=== PATIENT | female | born 1975 | race Caucasian/White ===

== ENCOUNTER 2018-03-30 05:55 | Emergency (ER) | payer OTHER, SELFPAY ==
[2018-03-30 05:56] VITALS: BP 139/88; PULSE 99; RESP 16; TEMP 36.7; O2SAT 100; BMI 34.2
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
[2018-03-30 06:07] VITALS: RESP 16
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
[2018-03-30] MEDS: Ibuprofen 600 MG Tablet PO (06:57)
== END 2018-03-30 07:23 | disposition home or self-care (01) ==
PROVIDERS: Emergency Provider Emergency Medicine; Family Provider Physician Assistant; PCP Physician Assistant
DX: S02.2XXA Fracture of nasal bones, initial encounter for closed fracture (principal); S80.11XA Contusion of right lower leg, initial encounter; S10.91XA Abrasion of unspecified part of neck, initial encounter; Y04.2XXA Assault by strike against or bumped into by another person, initial encounter; Y93.9 Activity, unspecified; Y92.9 Unspecified place or not applicable; Y99.9 Unspecified external cause status; Z72.0 Tobacco use
CPT/HCPCS: 70486; 73590; 99283

== ENCOUNTER → 2018-04-05 10:54 | Outpatient (CLI) | payer OTHER, SELFPAY ==
[2018-04-05 12:36] LABS: Hemoglobin 15.5 g/dl (12.0-15.0); Mean Corp Hgb Conc 34.4 g/gl (32-36); Mean Corpuscular Hgb 32.4 pg (27.0-32.0); Mean Corpuscular Volume 94.1 fL (81-99); Mean Platelet Vol. 10.7 fl (6.2-12.0); Platelet Count 219 K/mm3 (150-450); RBC Distribution Width CV 13.3 % (11.6-14.6); RBC Distribution Width SD 44.6 fl (35.1-43.9); Red Blood Count 4.78 M/mm3 (4.2-5.4); White Blood Count 8.5 K/mm3 (4.4-11.0)
[2018-04-05 12:37] LABS: Scan Indicated on CBC? Y/N NO
[2018-04-05 12:57] LABS: Pregnancy, Serum, hCG Quali. NEGATIVE Negative (0-9 Nonpreg)
== END ==
PROVIDERS: Family Provider Physician Assistant; PCP Physician Assistant; Visit Provider Otolaryngology
DX: Z01.812 Encounter for preprocedural laboratory examination (principal)
CPT/HCPCS: 36415; 84703; 85027

== ENCOUNTER 2018-05-02 11:00 | Outpatient (RCR) | payer OTHER, SELFPAY ==
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
--- NOTE | 2018-07-24 17:58 | HP.PTDCNRP_ITS ---
HP - Discharge Summary (1) - Patient Information MARY GRACE RODRIGUEZ was seen in my office for initial evaluation on 03/12/18. The following Plan of Care was established for this patient: Initial Frequency: 3x /Week Initial Duration: 2 Months - Anticipated Interventions Patient/Client Instruction: Educate patient on: Condition, Plan of Care For the Purpose of:: To decrease pain, To decrease swelling/inflammation, To i ncrease ROM, To improve nutrient delivery to tissue, To improve muscle performance and motor function, To increase tolerance to activity/condition/position, To improve performance and independence with ADL's, To decrease level of supervision to perform tasks, To improve ability of physical actions for home/community/work/leisure, To decrease soft tissue restriction, To increase flexibility/ROM Therapeutic Exercise to Include: Strength training, Endurance training, Postural training, Flexibilty training, Passive ROM, Active ROM, Scapular Strength/Stabilization For the Purpose of:: To decrease pain, To decrease swelling/inflammation, To increase ROM, To improve nutrient delivery to tissue, To improve muscle performance and motor function, To improve ability to perform ADL's, To improve performance and independence with ADL's, To decrease level of supervision to perform tasks, To improve ability of physical actions for home/community/work/ leisure, To improve health of tissue, To decrease soft tissue restriction, To increase flexibility/ROM Manual Therapy Techniques to Include: Passive ROM For the Purpose of:: To increase ROM IF ES: Yes Cryotherapy (ice pack, ice massage): Yes Thermo therapy (hot pack): Yes For the Purpose of:: To decrease pain, To decrease swelling/inflammation, To improve nutrient delivery to tissue, To increase oxygenation perfusion This patient was last seen in our office 05/02/18. Pertinent comments regarding their Physical therapy will appear below: Pt no-showed for her last 4 scheduled PT appointments. She will be discharged from our care at this time. At this point I will be discontinuing this patient from physical therapy. I would be happy to see this patient again in the future if found appropriate by the physician. Thank you! Miya Pineda, MPT
== END 2018-05-02 19:00 | disposition home or self-care (01) ==
LOC: PT 11:00
PROVIDERS: Family Provider Physician Assistant; PCP Physician Assistant; Visit Provider Orthopaedic Surgery
DX: S43.431D Superior glenoid labrum lesion of right shoulder, subsequent encounter (principal); S46.011D Strain of muscle(s) and tendon(s) of the rotator cuff of right shoulder, subsequent encounter; M75.81 Other shoulder lesions, right shoulder
CPT/HCPCS: 97014; 97110; 97140; 97161; G0283

== ENCOUNTER 2018-10-19 12:42 | Observation (INO) | payer OTHER, SELFPAY ==
[2018-10-19 12:43] VITALS: BP 132/71; PULSE 95; RESP 18; TEMP 36.3; O2SAT 99; BMI 34.4
--- NOTE | 2018-10-19 13:51 | EKG12_ITS ---
Test Reason : DIZZINESS Blood Pressure : / mmHG Vent. Rate : 081 BPM Atrial Rate : 081 BPM P-R Int : 166 ms QRS Dur : 086 ms QT Int : 364 ms P-R-T Axes : 034 -21 018 degrees QTc Int : 422 ms Normal sinus rhythm Minimal voltage criteria for LVH, may be normal variant Borderline ECG Confirmed by RIO ROSA, BRET ([id number]), assignment editor ALEXANDRA DRAPER ([id number]) on 10/22/2018 7:52:36 AM Referred By: ALEXANDER Confirmed By:BRET PATE MD
--- NOTE | 2018-10-19 13:51 | CT_ITS ---
STUDY: CTA NECK WITH CONTRAST REASON FOR EXAM: Female, 42 years old. Headache, dizziness, nausea/vomiting since last night.. RADIATION DOSAGE (If Supplied By Facility): CTDIvol = ( 22.44 ) mGy, DLP = ( 763.68 ) mGycm TECHNIQUE: CT angiography with multi-detector data acquisition was performed from the aortic arch to the skull base following intravenous administration of 100mL IV Isovue 300. MIP images were reconstructed from the axial data set. Post-processing of the angiographic images was performed, with multiplanar reformation and 3D reconstruction. Individualized dose optimization techniques were used for this CT. COMPARISON: None. FINDINGS: AORTIC ARCH: Normal visualized aortic arch. Normal origins of the brachiocephalic, left common carotid, and left subclavian arteries. RIGHT CAROTID ARTERIES: Normal right common carotid artery (CCA). Normal right common carotid bulb. Normal origin of the right internal carotid (ICA) artery without a hemodynamically significant stenosis. Normal visualized cervical portion of the right internal carotid artery. Normal origin of the right external carotid artery (ECA). LEFT CAROTID ARTERIES: Normal left common carotid artery (CCA). Normal left common carotid bulb. Normal origin of the left internal carotid (ICA) artery without a hemodynamically significant stenosis. Normal visualized cervical portion of the left internal carotid artery. Normal origin of the left external carotid artery (ECA). VERTEBRAL ARTERIES: Normal bilateral vertebral arteries. CT/CTA Neck W/WO Contrast IMPRESSION: Normal bilateral cervical carotid and vertebral arteries. Electronically Signed: Jose Manuel Carroll MD at 15:42 EDT Tel , Service support ,
--- NOTE | 2018-10-19 13:51 | RAD_ITS ---
STUDY: X-RAY CHEST REASON FOR EXAM: Female, 42 years old. Dizziness. TECHNIQUE: Single AP portable view of the chest. COMPARISON: None. FINDINGS: The lungs are clear and expanded. There is no demonstrated pleural abnormality. Normal size heart. Normal mediastinum and raúl. Normal visualized pulmonary arteries. Normal visualized aortic arch and descending thoracic aorta. Normal visualized thoracic spine. Normal visualized ribs, clavicles, and shoulders. There is no demonstrated abnormality of the visualized soft tissue structures of the upper abdomen. RAD/Chest 1 View (Portable) IMPRESSION: No evidence of acute cardiopulmonary process. Electronically Signed: Gigi Theodore DO at 14:50 EDT , Service support ,
--- NOTE | 2018-10-19 13:51 | CT_ITS ---
STUDY: CTA OF THE BRAIN REASON FOR EXAM: Female, 42 years old. Headache, dizziness, nausea/vomiting since last night. RADIATION DOSAGE (If Supplied By Facility): CTDIvol = ( 22.44 ) mGy, DLP = ( 763.68 ) mGycm TECHNIQUE: CT angiography was performed with a multi-detector CT scanner. Data acquisition was obtained from the skull base through the vertex following intravenous administration of 100mL IV Isovue 300. MIP images were reconstructed from the axial data set. Post-processing of the angiographic images was performed, with multiplanar reformation and 3D reconstruction. Individualized dose optimization techniques were used for this CT. COMPARISON: None. FINDINGS: Normal bilateral petrous carotid arteries. Normal right cavernous carotid artery with a normal supraclinoid bifurcation. Normal left cavernous carotid artery with a normal supraclinoid bifurcation. Normal right A1 segments of the anterior cerebral artery. Normal left A1 segments of the anterior cerebral artery. Normal intact anterior communicating artery (ACOM). Normal bilateral A2 segments of the anterior cerebral arteries. Normal right M1 and M2 segments of the middle cerebral arteries, with a normal M1 bifurcation. Normal left M1 and M2 segments of the middle cerebral arteries, with a normal M1 bifurcation. Normal bilateral vertebral arteries. Normal basilar artery with a normal basilar bifurcation. The visualized bilateral superior cerebellar (SCA) arteries are normal. Normal bilateral posterior cerebral arteries. There is no demonstrated aneurysm of the [place] of [place]. There is no demonstrated abnormality of the visualized brain. IMPRESSION: Unremarkable [place] of [place] without a demonstrated aneurysm or hemodynamically significant stenosis. Electronically Signed: Jose Manuel Carroll MD at 15:38 EDT Tel , Service support , STUDY: CT BRAIN WITHOUT CONTRAST REASON FOR EXAM: Female, 42 years old. Headache, dizziness, nausea/vomiting since last night.. RADIATION DOSAGE (If Supplied By Facility): CTDIvol = ( 44.99 ) mGy, DLP = ( 734.24 ) mGycm TECHNIQUE: Transaxial CT imaging of the brain was performed without administration of intravenous contrast material. Individualized dose optimization techniques were used for this CT. COMPARISON: No relevant priors. FINDINGS: Normal soft tissue structures. Normal calvarium. Normal size ventricles and extra-axial spaces for the patient's age. Normal white matter tracts of the cerebral hemispheres. Normal basal ganglia and thalami. Normal brainstem. Normal cerebellum. There is no intracranial hemorrhage. There are no findings of an acute ischemic infarction. Normal visualized paranasal sinuses. CT/CTA Head W/WO Contrast IMPRESSION: Normal unenhanced CT scan of the brain. Electronically Signed: Jose Manuel Carroll MD at 15:39 EDT Tel , Service support ,
--- NOTE | 2018-10-19 13:55 | ED.DCSUM_ITS ---
- ER Visit Summary Date of Service: 10/19/18 Chief Complaint: [] Dizziness spinning sensation vomiting History of Present Illness: The patient is a 42 F [] that this morning she woke with dizziness spinning sensation went to sleep feeling fine, she vomited in the car she came in for evaluation, she has no headache numbness weakness paresthesias no chest or abdominal pain normal bowel bladder habits has not been ill in any way does however report that for weeks she has had an intermittent sense of disc omfort behind her right eye her right maxillary sinus this discomfort seems to come and go and at times feels like sinus pressure she is not having it now she has no history of DC PE DVT brain aneurysm stroke or seizure, she does have a recent history of right rotator cuff injury and 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 is 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 work 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 from that process she is not been exposed to anyone who is been ill and again review of systems otherwise unremarkable Physical Examination: [] Blood pressure is 132/90 she is afebrile she is sitting in the room with her eyes open complain that the room is spinning General, no distress resting comfortably HEENT is generally unremarkable, her HEENT exam shows no acute abnormality I cannot reproduce this discomfort she has had to the right side of her face she is not having it now there is no cranial nerve deficits The neck is supple no adenopathy Cardiovascular, regular rate and rhythm Lungs, clear bilateral Abdomen, soft nontender Extremities, no clubbing cyanosis or edema Neurologic, awake alert answering questions appropriately moving all 4 extremities Test Results: [] Emergency Department Course and Treatment: [] Given all the above CTA head neck screening labs treatment Patient screening labs are generally unremarkable see those reports, the head CTA neck CTA negative for all EKG shows a sinus rhythm nothing acute she is been she with IV fluids Zofran and Ativan she still complains of being quite spinning and vertiginous does not feel well enough for discharge home given all the above I asked the hospital see her for admission Treatment Plan: [] Disposition: [] Admit stable Impression: [] Intractable vertigo with spinning sensation, intermittent right- sided facial pain etiology unclear This note was generated with [employer] dictation software. It may contain incorrect words, spelling, and punctuation that were not noted in review of the chart prior to signing ED Disposition - Plan for ED Patient: Referrals: Sheri Yeager PA [Primary Care Provider] -
[2018-10-19] MEDS: 0.9% Normal Saline 1,000 ML 1000 ML IV (14:05)
[2018-10-19] MEDS: Ondansetron 4 MG/2 ML Vial IV (14:05)
[2018-10-19] MEDS: LORazepam 2 MG/ML Syringe 0.5 MG IV (14:05)
[2018-10-19 14:07] VITALS: BP 109/70; PULSE 81; RESP 16
[2018-10-19 14:26] LABS: Absolute Neutrophil Count 7.7 X10^3/uL (2.0-7.7); Basophil# 0.03 X10^3/uL; Basophil% 0.3 % (0-1); Eosinophil# 0.06 X10^3/uL; Eosinophils% 0.6 % (0-5); Hematocrit 45.8 % (37-47); Hemoglobin 15.6 g/dl (12.0-15.0); Lymphocyte % 19.2 % (19-41); Mean Corp Hgb Conc 34.1 g/gl (32-36); Mean Corpuscular Hgb 31.5 pg (27.0-32.0); Mean Corpuscular Volume 92.3 fL (81-99); Mean Platelet Vol. 10.2 fl (6.2-12.0); Monocyte# 0.59 X10^3/uL; Monocyte% 5.7 % (0-10); Neutrophil % 73.9 % (47-70); Platelet Count 213 K/mm3 (150-450); RBC Distribution Width CV 13.5 % (11.6-14.6); RBC Distribution Width SD 44.8 fl (35.1-43.9); Red Blood Count 4.96 M/mm3 (4.2-5.4); White Blood Count 10.4 K/mm3 (4.4-11.0)
[2018-10-19 14:27] LABS: POSITIVE COUNT NO; POSITIVE DIFFERENTIAL NO; POSITIVE MORPHOLOGY NO
[2018-10-19 14:36] LABS: AST(SGOT) 18 U/L (15-37); Alanine Aminotransfer ALT/SGPT 36 U/L (13-56); Albumin, Serum 3.8 g/dL (3.2-5.0); Alkaline Phosphatase 63 U/L (45-117); Anion Gap 3 (5-15); BUN 14 mg/dL (7-18); BUN/Creat Ratio 15.7 RATIO (10-20); Bilirubin, Direct 0.16 mg/dL (0.00-0.30); Calcium,Total 9.4 mg/dL (8.5-10.1); Chloride 108 mmol/L (98-107); Creatinine, Serum 0.89 mg/dL (0.55-1.02); EST Glomerular Filtration Rate 74 mL/min (>60); Est Glom Filt Rate - Afr Amer 90 mL/min (>60); Estimated Creatinine Clearance 87.81 ml/min; Globulin 3.5 g/dL (2.2-4.2); Glucose 122 mg/dL (74-106); Lipase 75 U/L (73-393); Potassium 4.3 mmol/L (3.5-5.1); Protein, Total 7.3 g/dL (6.4-8.2); Sodium Level 138 mmol/L (136-145)
[2018-10-19 15:49] VITALS: BP 114/73; PULSE 78; RESP 15
[2018-10-19 16:31] LABS: Bacteria 0 SEEN /hpf (None Seen); Mucous, Urine 0 SEEN /hpf (<or=2+); Red Blood Cells-Urine 0 SEEN /hpf (0-5)
[2018-10-19 16:42] LABS: Color, Urine Yellow (Yellow); Glucose, Dipstick Normal (Normal); Ketone-Dipstick Negative (Negative); Leukocyte Esterase-Dipstick Negative /ul (Negative); Nitrite-Dipstick Negative (Negative); Occult Blood-Urine Negative /ul (Negative); Protein-Dipstick Negative (Negative); Specific Gravity, Urine 1.005 (1.002-1.030); Urine Bilirubin Dipstick Negative (Negative); Urine Clarity Clear (Clear); Urine Urobilinogen Normal (Normal)
[2018-10-19 16:44] VITALS: BP 110/55; PULSE 16
[2018-10-19] MEDS: Meclizine HCl 25 MG Tablet PO ×2 (16:44→21:54)
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
[2018-10-19 16:59] LABS: Squamous Epithelial Cells - UA 5-10 SEEN /hpf (5-10); White Blood Cells 0-5 SEEN /hpf (0-5)
[2018-10-19 17:04] VITALS: BMI 34.1
[2018-10-19 17:06] VITALS: BMI 34.1
[2018-10-19 17:17] VITALS: BP 107/68; PULSE 77; RESP 18; TEMP 36.8; O2SAT 100
[2018-10-19] MEDS: 0.45% Normal Saline 1,000 ML 100 ML IV (17:34)
[2018-10-19] MEDS: Acetaminophen 325 MG Tablet 650 MG PO (18:31)
[2018-10-19] MEDS: 0.9% NaCl Peripheral Flush Adult/Peds IV (18:32)
[2018-10-19 21:57] VITALS: BP 115/53; PULSE 91; RESP 18; TEMP 36.9; O2SAT 100
[2018-10-20] MEDS: Meclizine HCl 25 MG Tablet PO ×2 (02:44→07:24)
[2018-10-20] MEDS: 0.45% Normal Saline 1,000 ML 100 ML IV (02:46)
[2018-10-20 02:49] VITALS: BP 112/77; PULSE 85; RESP 18; TEMP 36.4; O2SAT 100
[2018-10-20 07:43] VITALS: BP 98/56; PULSE 76; RESP 18; TEMP 36.7; O2SAT 98
[2018-10-20] MEDS: Acetaminophen 325 MG Tablet 650 MG PO (07:48)
--- NOTE | 2018-10-20 08:28 | DCINST_ITS ---
- Discharge Diagnoses Current Active Problems: Current Active and Chronic Problems Vertigo (Acute) Carpal tunnel syndrome (Chronic) Varicose veins of both lower extremities (Chronic) Obesity (Chronic) You will use the following diet at home:: Regular Your food should be the consistency of: Regular Discharge Activity: May Not Drive - until cleared by PCP for dizziness/vertigo Weight Bearing Status: Weight bearing as tolerated Call your doctor if you observe: Fever of 101 or Higher, Inability to urinate, Shortness of breath, Dizziness, Fainting spells, Chest pain, Increased palpitations (irregular heartbeat) Allergies/Adverse Reactions: Allergies Penicillins Allergy (Verified 10/19/18 12:43) Other acetaminophen [From Vicodin] Adverse Reaction (Verified 10/19/18 12:43) Itching erythromycin base [Erythromycin Base] Adverse Reaction (Verified 10/19/18 12:43) Upset Stomach hydrocodone [From Vicodin] Adverse Reaction (Verified 10/19/18 12:43) Itching SODIUM [place] Adverse Reaction (Uncoded 10/19/18 12:43) Other Medications to take at Discharge Meclizine HCl [Antivert] 12.5 mg PO Q6H PRN PRN #30 tab 10/20/18 Nabumetone [Relafen] 750 mg PO BID PRN PRN #0 10/20/18 Nicotine [Nicoderm Cq] 21 mg TRANSDERM. DAILY #30 patch 10/20/18 The following prescriptions were given: Meclizine HCl [Antivert] 12.5 mg PO Q6H PRN PRN #30 tab PRN Reason: DIZZINESS/VERTIGO Nicotine [Nicoderm Cq] 21 mg TRANSDERM. DAILY #30 patch Primary Care Physician: Sheri Yeager PA [Primary Care Provider] - Please follow up with your Primary Care Physician in: in 2 weeks Test Results: Test results from this visit will be discussed in further detail at your follow- up appointment, if applicable. Please Follow Up With: Julien Muse MD When: in 2-3 weeks for vertigo, occ tinitus and B/L hearing loss
--- NOTE | 2018-10-20 08:29 | PCM.DC.SUM ---
Discharge Date and Diagnosis - Problem List Patient Problems: Active and Suspected Problems Vertigo (Acute) Date of Admission: 10/19/18 Date of Discharge: 10/20/18 - Primary Discharge Diagnosis Active and Suspected Problems Vertigo (Acute) - Secondary Discharge Diagnosis Chronic Problems Carpal tunnel syndrome (Chronic) Varicose veins of both lower extremities (Chronic) Obesity (Chronic) Hospital Course and Treatment Summary of Care Provided: The patient is a 42 year old F [] Patient Problems: Active and Suspected Problems Vertigo (Acute) - Physical Exam Vital Signs Temp Pulse Resp BP Pulse Ox 98.1 F 76 18 98/56 L 98 10/20/18 07:43 10/20/18 07:43 10/20/18 07:43 10/20/18 07:43 10/20/18 07:43 Oxygen Delivery Method Room Air Weight: 231 lb 0.711 oz Body Mass Index (BMI) 34.1 Intake and Output for Last 24 Hours 10/18/18 10/19/18 10/20/18 23:59 23:59 23:59 Intake Total 1226 / 1226 Output Total 600 / 600 Balance 626 / 626 Laboratory Tests Past 24 Hrs 10/19/18 10/19/18 10/19/18 14:05 14:05 16:26 WBC 10.4 RBC 4.96 Hgb 15.6 H Hct 45.8 MCV 92.3 MCH 31.5 MCHC 34.1 RDW 13.5 RDW Differential 44.8 H Plt Count 213 MPV 10.2 Immature Gran % (Auto) 0.300 Neut % (Auto) 73.9 H Lymph % (Auto) 19.2 [place] % (Auto) 5.7 Eos % (Auto) 0.6 Baso % (Auto) 0.3 Absolute Neuts (auto) 7.7 Absolute Lymphs (auto) 2.00 Total Counted Not Reportable Sodium 138 Potassium 4.3 Chloride 108 H Carbon Dioxide 27.0 Anion Gap 3 L BUN 14 Creatinine 0.89 Estim Creat Clear Calc 87.81 Est GFR (MDRD) Af Amer 90 Est GFR (MDRD) Non-Af 74 BUN/Creatinine Ratio 15.7 Glucose 122 H Calcium 9.4 Total Bilirubin 0.60 Direct Bilirubin 0.16 AST 18 ALT 36 Alkaline Phosphatase 63 Troponin I < 0.015 Total Protein 7.3 Albumin 3.8 Globulin 3.5 Lipase 75 Urine Color Yellow Urine Clarity Clear Urine pH 7.0 Ur Specific [place] 1.005 Urine Protein Negative Urine Glucose (UA) Normal Urine Ketones Negative Urine Occult Blood Negative Urine Nitrite Negative Urine Bilirubin Negative Urine Urobilinogen Normal Ur Leukocyte Esterase Negative Urine RBC 0 SEEN Urine WBC 0-5 SEEN Ur Squamous Epith Cells 5-10 SEEN Urine Bacteria 0 SEEN Urine Mucus 0 SEEN Discharge Activity: May Not Drive - until cleared by PCP for dizziness/vertigo Weight Bearing Status: Weight bearing as tolerated Call your doctor if you observe: Fever of 101 or Higher, Inability to urinate, Shortness of breath, Dizziness, Fainting spells, Chest pain, Increased palpitations (irregular heartbeat) Home Medications: Medications to take at Discharge Meclizine HCl [Antivert] 12.5 mg PO Q6H PRN PRN #30 tab 10/20/18 Nabumetone [Relafen] 750 mg PO BID PRN PRN #0 10/20/18 Nicotine [Nicoderm Cq] 21 mg TRANSDERM. DAILY #30 patch 10/20/18 Following Prescrptions Were Given to Patient: Meclizine HCl [Antivert] 12.5 mg PO Q6H PRN PRN #30 tab PRN Reason: DIZZINESS/VERTIGO Nicotine [Nicoderm Cq] 21 mg TRANSDERM. DAILY #30 patch Primary Care Physician: Sheri Yeager PA [Primary Care Provider] - Please follow up with your Primary Care Physician in: in 2 weeks Please Follow Up With: Julien Muse MD When: in 2-3 weeks for vertigo, occ tinitus and B/L hearing loss Medical Necessity - Tobacco Use Smoking Status: Current every day smoker Tobacco Use: Cigarettes
--- NOTE | 2018-10-20 12:39 | PCM.DC.SUM ---
<Kayden Solano - Last Filed: 10/20/18 12:39> Discharge Date and Diagnosis Date of Admission: 10/19/18 Date of Discharge: 10/20/18 - Primary Discharge Diagnosis BPPV, new onset Nicotine abuse Hx Osteoarthritis Obesity - Secondary Discharge Diagnosis Chronic Problems Carpal tunnel syndrome (Chronic) Varicose veins of both lower extremities (Chronic) Obesity (Chronic) Hospital Course and Treatment Imaging Results: RAD/Chest 1 View (Portable) IMPRESSION: No evidence of acute cardiopulmonary process. IMPRESSION: Unremarkable [place] without a demonstrated aneurysm or hemodynamically significant stenosis. CT/CTA Neck W/WO Contrast IMPRESSION: Normal bilateral cervical carotid and vertebral arteries. Operations: None Procedures: None Summary of Care Provided: Hospital course: The patient is a 42 year old F with past medical history of nicotine abuse, osteoarthritis, who presented to the emergency room with new onset of vertigo described as spinning sensation and constant movement of think she was trying to focus on. This began when she woke up in the middle the night. She went back to sleep in the morning she woke up very nauseous and was vomiting. She came to the emergency room and had a CTA of the head and neck which were negative. Her symptoms were worse with turning her head to the right and turning her head downwards. Her symptoms were better at rest. She was given meclizine which did help her symptoms. She was admitted to the hospital as she was so dizzy that she was unable to walk. She had almost near resolution of her symptoms by the following morning. Occupational therapy was ordered. She was advised to have follow-up with her ENT who is Julien Muse, and to follow-up with her PCP in 1-2 weeks. She was advised that she may not drive until cleared by her PCP. She was prescribed meclizine and a nicotine patch at discharge. She was discharged home in stable condition. This patient was seen by Kayden Solano PA-C under the supervision of Doctor Bentley. [] - Physical Exam General: Alert, Oriented x3, Cooperative HEENT: Atraumatic, PERRLA, EOMI, Normocephalic Neck: Supple, No JVD, Negative Carotid Bruits Lungs: Clear to auscultation, Normal air movement Cardiovascular: Regular rate, No murmurs Abdomen: Bowel Sounds Present, Soft, Non Tender Extremities: No edema, Capillary Refill Less than 3 Seconds Skin: No rashes, No breakdown Musculoskeletal: No Tenderness to Palpation of Joints or Extremities Neurological: Cranial nerves II-XII grossly intact, - - No nystagmus Psych/Mental Status: Normal Affect, Appropriate Vital Signs Temp Pulse Resp BP Pulse Ox 98.1 F 76 18 98/56 L 98 10/20/18 07:43 10/20/18 07:43 10/20/18 07:43 10/20/18 07:43 10/20/18 07:43 Oxygen Delivery Method Room Air Weight: 231 lb 0.711 oz Body Mass Index (BMI) 34.1 Intake and Output for Last 24 Hours 10/18/18 10/19/18 10/20/18 23:59 23:59 23:59 Intake Total 1226 / 1226 Output Total 600 / 600 Balance 626 / 626 Laboratory Tests Past 24 Hrs 10/19/18 10/19/18 10/19/18 14:05 14:05 16:26 WBC 10.4 RBC 4.96 Hgb 15.6 H Hct 45.8 MCV 92.3 MCH 31.5 MCHC 34.1 RDW 13.5 RDW Differential 44.8 H Plt Count 213 MPV 10.2 Immature Gran % (Auto) 0.300 Neut % (Auto) 73.9 H Lymph % (Auto) 19.2 [place] % (Auto) 5.7 Eos % (Auto) 0.6 Baso % (Auto) 0.3 Absolute Neuts (auto) 7.7 Absolute Lymphs (auto) 2.00 Total Counted Not Reportable Sodium 138 Potassium 4.3 Chloride 108 H Carbon Dioxide 27.0 Anion Gap 3 L BUN 14 Creatinine 0.89 Estim Creat Clear Calc 87.81 Est GFR (MDRD) Af Amer 90 Est GFR (MDRD) Non-Af 74 BUN/Creatinine Ratio 15.7 Glucose 122 H Calcium 9.4 Total Bilirubin 0.60 Direct Bilirubin 0.16 AST 18 ALT 36 Alkaline Phosphatase 63 Troponin I < 0.015 Total Protein 7.3 Albumin 3.8 Globulin 3.5 Lipase 75 Urine Color Yellow Urine Clarity Clear Urine pH 7.0 Ur Specific [place] 1.005 Urine Protein Negative Urine Glucose (UA) Normal Urine Ketones Negative Urine Occult Blood Negative Urine Nitrite Negative Urine Bilirubin Negative Urine Urobilinogen Normal Ur Leukocyte Esterase Negative Urine RBC 0 SEEN Urine WBC 0-5 SEEN Ur Squamous Epith Cells 5-10 SEEN Urine Bacteria 0 SEEN Urine Mucus 0 SEEN Discharge Diet: No Restrictions Discharge Activity: May Not Drive - until cleared by PCP for dizziness/vertigo Weight Bearing Status: Weight bearing as tolerated Call your doctor if you observe: Fever of 101 or Higher, Inability to urinate, Shortness of breath, Dizziness, Fainting spells, Chest pain, Increased palpitations (irregular heartbeat) Home Medications: Medications to take at Discharge Meclizine HCl [Antivert] 12.5 mg PO Q6H PRN PRN #30 tab 10/20/18 Nabumetone [Relafen] 750 mg PO BID PRN PRN #0 10/20/18 Nicotine [Nicoderm Cq] 21 mg TRANSDERM. DAILY #30 patch 10/20/18 Following Prescrptions Were Given to Patient: Meclizine HCl [Antivert] 12.5 mg PO Q6H PRN PRN #30 tab PRN Reason: DIZZINESS/VERTIGO Nicotine [Nicoderm Cq] 21 mg TRANSDERM. DAILY #30 patch Primary Care Physician: Sheri Yeager PA [Primary Care Provider] - Please follow up with your Primary Care Physician in: in 2 weeks Please Follow Up With: Julien Muse MD When: in 2-3 weeks for vertigo, occ tinitus and B/L hearing loss Disposition: Home Minutes spent on discharge:: 35 Patient Condition:: Stable Medical Necessity - Tobacco Use Smoking Status: Current every day smoker Tobacco Use: Cigarettes Meaningful Use Info Meaningful Use Diagnoses (Choose all that apply): None applicable <Ricardo Bentley - Last Filed: 10/20/18 15:51> Discharge Date and Diagnosis - Secondary Discharge Diagnosis Chronic Problems Carpal tunnel syndrome (Chronic) Varicose veins of both lower extremities (Chronic) Obesity (Chronic) Hospital Course and Treatment Summary of Care Provided: [] This patient was seen in conjunction with Kayden WALSH. I have independently interviewed and examined the patient and reviewed pertinent history, examination findings, laboratory and plan of management. I have reviewed the note and agree with the documented findings with the few additional points. In brief, patient is a 42-year-old female admitted for dizziness, vertigo; mainly related to the position of head consistent with BPPV. Patient also has of balance/gait incontinence secondary to dizziness. On symptomatic management. PT and OT. Patient has seen ENT Dr. Julien Muse in the past. Her dizziness was controlled with Antivert. PT and OT was ordered. Patient agreed to see Dr. Julien Muse for bilateral chronic mild hearing loss probably noise-induced sensorineural in nature along with occasional tinnitus and dizziness. Patient can have outpatient MRI, as nonurgent MRI is not done on weekends in 1-2 weeks. I have discussed my assessment with Kayden WALSH and orders have been reviewed. Subjective: Patient does not have dizziness or vertigo. Patient wants to go home. - Physical Exam General: Alert, Oriented x3, Cooperative HEENT: Atraumatic, PERRLA, EOMI, Normocephalic Neck: Supple, No JVD, Negative Carotid Bruits Lungs: Clear to auscultation, Normal air movement Cardiovascular: Regular rate, Regular Rhythm, Normal S1, No murmurs Abdomen: Bowel Sounds Present, Soft, Non Tender, Non-Distended Extremities: No edema, Capillary Refill Less than 3 Seconds Skin: No rashes, No breakdown Musculoskeletal: No Tenderness to Palpation of Joints or Extremities Neurological: Cranial nerves II-XII grossly intact, Deep Tendon Reflexes 2+/4 and Symmetrical, Neuro grossly intact, - - No nystagmus Chronic mild weakness of right shoulder and right hand otherwise rest joints are 5/5 Psych/Mental Status: Normal Affect, Appropriate Vital Signs Temp Pulse Resp BP Pulse Ox 98.1 F 76 18 98/56 L 98 10/20/18 07:43 10/20/18 07:43 10/20/18 07:43 10/20/18 07:43 10/20/18 07:43 Oxygen Delivery Method Room Air Weight: 231 lb 0.711 oz Body Mass Index (BMI) 34.1 Intake and Output for Last 24 Hours 10/18/18 10/19/18 10/20/18 23:59 23:59 23:59 Intake Total 1226 / 1226 Output Total 600 / 600 Balance 626 / 626 Laboratory Tests Past 24 Hrs 10/19/18 16:26 Urine Color Yellow Urine Clarity Clear Urine pH 7.0 Ur Specific [place] 1.005 Urine Protein Negative Urine Glucose (UA) Normal Urine Ketones Negative Urine Occult Blood Negative Urine Nitrite Negative Urine Bilirubin Negative Urine Urobilinogen Normal Ur Leukocyte Esterase Negative Urine RBC 0 SEEN Urine WBC 0-5 SEEN Ur Squamous Epith Cells 5-10 SEEN Urine Bacteria 0 SEEN Urine Mucus 0 SEEN Code Visit OBSV E&M: 64742 Observation care discharge
== END 2018-10-20 10:30 | disposition home or self-care (01) ==
LOC: ED 15:18 → MS3 17:14
PROVIDERS: Emergency Provider Emergency Medicine; Family Provider Physician Assistant; PCP Physician Assistant; Visit Provider Internal Medicine
DX: H81.10 Benign paroxysmal vertigo, unspecified ear (principal); M19.90 Unspecified osteoarthritis, unspecified site; E66.9 Obesity, unspecified; Z68.34 Body mass index [BMI] 34.0-34.9, adult; Z71.3 Dietary counseling and surveillance; Z79.899 Other long term (current) drug therapy; F17.210 Nicotine dependence, cigarettes, uncomplicated
CPT/HCPCS: 70496; 70498; 71045; 80048; 80076; 81001; 83690; 84484; 85025; 93005; 96361; 96374; 96375; 99218; 99284; 99406; J7030; Q9967; A4216; G0378; J2405

== ENCOUNTER 2018-11-15 10:00 | Outpatient (RCR) | payer OTHER, SELFPAY ==
--- NOTE | 2018-10-25 09:57 | HP.PTEVAL ---
Patient's Visit Information MARY GRACE RODRIGUEZ is a 42 year old F referred to Physical Therapy by Julien Muse MD with a diagnosis of Vestibular neuritis. Date of Evaluation: 10/25/18 Physical Therapist: Dusty Jones, MARTINAT, OCS, CSCS - Visit Plan Frequency: 1x/Week Duration: 4-6 Weeks Plan: weekly x 4-6 as needed for. 1. Progression of VOR adaptation exercises and ensure balance improving. 2. may need MSQ if progress slows and habituation exercises from this info. 3. Ensure back to regular function. - Subjective Findings: Last sunday night woke up in middle of night spinning. Fell back asleep and when she got up was still very dizzy with any movement casuing nausea and throwing up. Went to ER and admitted overnight. Ran a bunch of test of head and blood and was normal. Went home the next day still dizzy. Improving overall as whole world is not dizzy but feels like she is in a stupor and light headed if she moves her head certain ways. Walking can be stuttering and unsteady, no falls. Saw Dr. Muse this week and ruled out positional vertigo. Saw other doctor on Sunday and given prednisone whcih helped a little. Overall feels off and in mental fog. Never had this before and felt good the day before upon going to bed. Spinning is gone since early in week. Always feel disoriented except when sleeping. Sleeps OK for the most part. Is currently off work due to RCR in rehab for R shoulder at [facility]. 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 Has n't been doing much this past week. Hasn't gone to therapy. Laundry and meals are taking a backseat. Mother in law helps with meals as does daughter. Overall feels 10% better overall. - Objective Walks I btu slow, trasnfers I but careful with head movements. C/S aROM WFL and painfree. UE AROM WNL L and R about 100 degrees(RTC tear and is in rehab elsewhere). - B hallpike jp, - roll test. Oculomotor: no nystagmus with gaze or head shake. - skew eye deviation. - head thrust. pursuit is normal. Saccades are normal. neither one is hard or fatiguing. VOR is challenging after 20 seconds horizontally in eval room seated and after 10 seconds with increasd symptoms vertically in the same area. - Balance Scores Functional Gait Assessment Score: 27 % Disability: 10.0000 - Goals Goal 1:: Abolish dizzy/dysequilibrium feeling 100% Goal Time Frame: 4-6 Weeks Goal 2:: Patient score 30/30 on FGA and feel normal balance Goal Time Frame: 4-6 Weeks Goal 3:: Patient back to all normal acitivites including cooking and cleaning and social activities. Goal Time Frame: 4-6 Weeks - Rehabilitation Potential Physical Therapy Diagnosis: vestibular hypofunction form neuritis Rehabilitation Potential: Good - Anticipated Interventions Patient/Client Instruction: Educate patient on: Condition, Plan of Care, Risk Factors For the Purpose of:: To increase tolerance to activity/condition/position, To improve ability of physical actions for home/community/work/leisure, To improve balance Therapeutic Exercise to Include: Balance training Comment: adaptation and habituation as needed. For the Purpose of:: To increase tolerance to activity/condition/position, To improve ability of physical actions for home/community/work/leisure, To improve balance Thank you for the opportunity to evaluate your patient. For Medicare and Medicare HMO plans, please review the plan of care and approve it. It will need to be FAXED BACK to us at [phone] for Medicare purposes. For Medicare only, by signing this I certify the plan of care. Please let me know if there are questions or concerns regarding this plan of care. Physician Signature: Date:
--- NOTE | 2019-02-04 18:47 | HP.PT.NRP ---
HP - Discharge Summary (1) - Patient Information MARY GRACE RODRIGUEZ was seen in my office for initial evaluation on 10/25/18. The following Plan of Care was established for this patient: Initial Frequency: 1x/Week Initial Duration: 4-6 Weeks - Anticipated Interventions Patient/Client Instruction: Educate patient on: Condition, Plan of Care, Risk Factors For the Purpose of:: To increase tolerance to activity/condition/position, To improve ability of physical actions for home/community/work/leisure, To improve balance Therapeutic Exercise to Include: Balance training For the Purpose of:: To increase tolerance to activity/condition/position, To improve ability of physical actions for home/community/work/leisure, To improve balance This patient was last seen in our office 11/15/18. Pertinent comments regarding their Physical therapy will appear below: Pt seen for 4 visits but cancelled and no showed the last two. She was doing very well with therapy prior to these unattended visits. That was over two months ago and I will discontinue due to nonattendance. At this point I will be discontinuing this patient from physical therapy. I would be happy to see this patient again in the future if found appropriate by the physician. Thank you! Dusty Jones, DPT, OCS, CSCS
== END 2018-11-15 19:00 | disposition home or self-care (01) ==
LOC: PT 10:00
PROVIDERS: Family Provider Physician Assistant; PCP Physician Assistant; Referring Provider Otolaryngology; Visit Provider Otolaryngology
DX: H93.3X9 Disorders of unspecified acoustic nerve (principal)
CPT/HCPCS: 97110; 97162; 97530

== ENCOUNTER → 2019-06-03 14:43 | Outpatient (CLI) | payer OTHER, SELFPAY ==
[2019-06-03 15:14] LABS: Absolute Neutrophil Count 4.3 X10^3/uL (2.0-7.7); Basophil# 0.04 X10^3/uL; Basophil% 0.5 % (0-1); Eosinophil# 0.15 X10^3/uL; Eosinophils% 1.8 % (0-5); Hematocrit 44.8 % (37-47); Hemoglobin 14.6 g/dL (12.0-15.0); Lymphocyte % 40.9 % (19-41); Mean Corp Hgb Conc 32.6 g/dL (32-36); Mean Corpuscular Hgb 31.3 pg (27.0-32.0); Mean Corpuscular Volume 95.9 fL (81-99); Monocyte# 0.59 X10^3/uL; Monocyte% 6.9 % (0-10); NRBC Flagged by Analyzer 0 % (0-5); Neutrophil # 4.26 X10^3/uL (2.7-7.7); Neutrophil % 49.7 % (47-70); Platelet Count 227 K/mm3 (150-450); RBC Distribution Width CV 13.2 % (11.6-14.6); RBC Distribution Width SD 46.8 fl (35.1-43.9); Red Blood Count 4.67 M/mm3 (4.2-5.4); White Blood Count 8.6 K/mm3 (4.4-11.0)
[2019-06-03 15:43] LABS: Erythrocyte Sedimentation Rate 7 mm/hr (0-20)
[2019-06-03 15:47] LABS: CRP < 2.90 mg/L (0.0-3.0); Rheumatoid Factor < 10.0 IU/mL (<15); Uric Acid 4.5 mg/dL (2.6-6.0)
[2019-06-05 15:49] LABS: ANTINUCLEAR ANTIBODIES DIRECT Negative (Negative)
== END ==
PROVIDERS: Family Provider Physician Assistant; PCP Physician Assistant; Referring Provider Orthopaedic Surgery; Visit Provider Orthopaedic Surgery
DX: G56.01 Carpal tunnel syndrome, right upper limb (principal)
CPT/HCPCS: 36415; 84550; 85025; 85652; 86038; 86140; 86431

== ENCOUNTER → 2019-09-09 10:20 | Outpatient (CLI) | payer OTHER, SELFPAY ==
--- NOTE | 2019-09-09 10:26 | VDUE_ITS ---
Reason For Study: pain Left Proximal Left jugular vein is spontaneous, widely patent, phasic, with no intraluminal echogenicity noted. Left subclavian vein is spontaneous, widely patent, phasic, with no intraluminal echogenicity noted. Left Arm Left axillary vein is spontaneous, patent, phasic, competent, compressible and demonstrates augmentation. Left brachial vein is compressible. Left cephalic vein is compressible. Left basilic vein is compressible. Left Lower Arm Left radial vein is compressible. Left ulnar vein is compressible. Interpretation Summary Deep veins of the left upper extremity are patent and compressible segmentally. There is no evidence of deep vein thrombosis. The superficial veins of the left upper extremity, the basilic and cephalic veins, are patent and compressible. There is no evidence of left upper extremity superficial thrombophlebitis involving the veins imaged. Ordering Physician: Julito Watson Performed By: Alfredo Rao RVT ?
== END ==
PROVIDERS: PCP Physician Assistant; Referring Provider Orthopaedic Surgery; Visit Provider Orthopaedic Surgery
DX: M79.602 Pain in left arm (principal)
CPT/HCPCS: 93971

== ENCOUNTER → 2020-02-23 17:42 | Outpatient (CLI) | payer OTHER, SELFPAY | PROVIDERS: PCP Physician Assistant; Referring Provider Physician Assistant; Visit Provider Physician Assistant | DX: J06.9 Acute upper respiratory infection, unspecified (principal) | CPT/HCPCS: 87635; 94799; U0003 ==

== ENCOUNTER → 2021-02-11 10:02 | Outpatient (CLI) | payer OTHER, SELFPAY ==
--- NOTE | 2021-02-11 10:09 | EKG12_ITS ---
Test Reason : PREOP Blood Pressure : / mmHG Vent. Rate : 077 BPM Atrial Rate : 077 BPM P-R Int : 144 ms QRS Dur : 090 ms QT Int : 356 ms P-R-T Axes : 024 -27 018 degrees QTc Int : 402 ms Normal sinus rhythm Normal ECG Confirmed by GÓMEZ ROSA, MARIBELL ([id number]), copy editor JAYESH VICTORIA ([id number]) on 02/15/2021 10:02:52 AM Referred By: Rahul Bonilla Confirmed By:MARIBELL MAGAÑA MD
[2021-02-11 11:03] LABS: Hematocrit 46.5 % (37-47); Hemoglobin 15.6 g/dL (12.0-15.0); Mean Corp Hgb Conc 33.5 g/dL (32-36); Mean Corpuscular Volume 95.3 fL (81-99); Mean Platelet Vol. 10.8 fl (6.2-12.0); Platelet Count 234 K/mm3 (150-450); RBC Distribution Width CV 13.2 % (11.6-14.6); RBC Distribution Width SD 46.5 fl (35.1-43.9); Red Blood Count 4.88 M/mm3 (4.2-5.4); White Blood Count 10.6 K/mm3 (4.4-11.0)
[2021-02-11 11:18] LABS: Anion Gap 5 (5-15); BUN 13 mg/dL (7-18); BUN/Creat Ratio 13.4 RATIO (10-20); Calcium,Total 9.6 mg/dL (8.5-10.1); Chloride 109 mmol/L (98-107); Creatinine, Serum 0.97 mg/dL (0.55-1.02); EST Glomerular Filtration Rate 67 mL/min (>60); Est Glom Filt Rate - Afr Amer 81 mL/min (>60); Glucose 101 mg/dL (74-106); Sodium Level 139 mmol/L (136-145)
== END ==
PROVIDERS: PCP Physician Assistant; Referring Provider Physician Assistant; Visit Provider Physician Assistant
DX: Z01.818 Encounter for other preprocedural examination (principal); Z20.822 Contact with and (suspected) exposure to COVID-19; Z11.59 Encounter for screening for other viral diseases
CPT/HCPCS: 36415; 80048; 85027; 87426; 93005; C9803

== ENCOUNTER 2021-08-22 09:57 | Outpatient (RCR) | payer OTHER, SELFPAY ==
--- NOTE | 2021-08-24 12:29 | HP.OTFCE_ITS ---
Floor (Occasional 1-33% of Day): 20 Floor (Frequent 34-66% of Day): NA Floor (Constant 67-100% of Day): NA Floor PDL: Light Knee (Occasional 1-33% of Day): 20 Knee (Frequent 34-66% of Day): NA Knee (Constant 67-100% of Day): NA Knee PDL: Light Waist (Occasional 1-33% of Day): 15# Waist (Frequent 34-66% of Day): NA Waist (Constant 67-100% of Day): NA Waist PDL: Sedentary-Light Shoulder (Occasional 1-33% of Day): 15# Shoulder (Frequent 34-66% of Day): NA Shoulder (Constant 67-100% of Day): NA Shoulder PDL: Sedentary-Light Overhead (Occasional 1-33% of Day): 10# Overhead (Frequent 34-66% of Day): NA Overhead (Constant 67-100% of Day): NA Overhead PDL: Sedentary Comments: with overhead left UE only. no ability right UE to lift overhead. with floor, knee, waist and shoulder lifting levels due to compensatory melina. rec. occasional ability Bending: Frequent Ability (34-66% of day) Squatting: Frequent Ability (34-66% of day) Kneeling: Occasional Ability (1-33% of day) Reaching out: Occasional Ability (1-33% of day) Comments: bilateral UE performed while sitting Reaching up: Frequent Ability (34-66% of day) Comments: with left RIGHT low occasional ability within her ROM Sitting: Frequent Ability (34-66% of day) Comments: with given opportunity to shift her body weight Walking: Frequent Ability (34-66% of day) Standing: Frequent Ability (34-66% of day) Comments: with shifting her body weight Duration Sedentary Sedentary Light Light Light Medium Medium Medium Heavy Very Heavy Heavy Occasional (0-33% of day) Frequent (34-66% of day) Constant (67-100% of day) 10 # Negligible Negligible 15 # 8 # Negligible 20 # 10# Negli. 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 pt states she did get another set-up gas appliance mechanic to assist- pt states she did not go to ER- she felt she sprained something- pt did report this injury a few days later. pt states on December 20 2017 she was then hit by a door in the right shoulder this caused pain. pt states she felt her symptoms got worse and she was placed on light duty while she was healing. pt continued to have complications pt had MRI this said tear- pt had sx in 2017.(Dr. Paul) following sx she had Physical therapy- due to complication she ended up with a follow up sx in 2018. by Dr. roe. pt states following this sx she ended up with frozen shoulder and had the manipulation done ( Dr. Roe.) - pt did have more Physical therapy- but due to pain on both sides of her elbow ( had sx for medial and lateral elbow release) pt states she had [facility] following elbow- and pt then had biceps tendon transposition (per pt) pt continues to have difficulty with recovery and appears to have one dx after the other- pt states she does not exercise on a regular basis- pt smokes 1/2 a pack a day- pt states Dr. Roe placed her on restriction of no lifting overhead, no repetitive motion and n othing over 10# Diagnoses: Depression. Supraspinatus tendinosis. Infraspinatus. sprain of right shoulder. labral tear right shoulder. Fibromyalgia Symptoms: Pain right arm. pain right shoulder. right side of neck. right collarbone region. finger tingling Pain: Pt takes pain medication daily to function with performing her ADls and IADLS. pt states she has pain 3-4/10 that with taking pain medication. oxycodone 5-325 -3x a day taking this medication keeps pain at a 3/4/10. it pt misses a dose pain increases. 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 ADLS: Pt lives with in two story home- 5 entry- pt has bedroom on 2nd floor and bathroom on 1st floor-. laundry is on first floor- pt states both her and her do the laundry. pt drives. pts and her go grocery shopping together-. pt states both her and her are doing the cooking and cleaning-. pt states she uses her left arm for majority of tasks. pt states her has quit his job to stay with her- ROM: right shoulder flexion 80*. right shoulder abduction 75*. it was noted during assessment therapist observation of pts right UE ROM were more than objective measurements. pt demo all other ROM WNL Strength: right shoulder flexion, abduction, horizontal add/abduction tested at 3+/5 - right biceps/triceps 4+/5. all other MMT for left UE and LB testing was 4+/5 grossly throughout. Right Public Accountant Strength Average: 6.66 Right Public Accountant Strength Percentile: see note below regarding effort Left Public Accountant Strength Average: 75.00 Left Public Accountant Strength Percentile: 74% Right Lateral Pinch Average: 4.00 Right Lateral Pinch Percentile: <10% Left Lateral Pinch Average: 12.66 Left Lateral Pinch Percentile: 50% Right Tripod Pinch Average: 4.00 Right Tripod Pinch Percentile: <10% Left Tripod Pinch Average: 12.00 Left Tripod Pinch Percentile: 50% Comments: Due to limited reading on deputy sheriff civil division dynamometer therapist had pt complete a static compare deputy sheriff civil division strength test performed on BTE ([employer]). tool 162 deputy sheriff civil division. Average right deputy sheriff civil division strength was 45.9# (this was more than pts ability on deputy sheriff civil division dynamometer listed above 6# right deputy sheriff civil division ) placing pt at at 5% for her age. resting heart rate 82 Sensation: Monofilament testing for bilateral digits. all tested at 2.83 right/left indicating Normal sensation Fine Motor: 9 hole peg test for FMS. right 21.97 seconds = 25% for age. left 21.79 seconds = 50% for age Balance: pt demo with normal balance. pt denied issues with balance Bending: pt demo the ability to bend forward 3/3x and 10/10x heart rate increased to 105. pt completed 10/10x rapidly and heart rate following 110. pt states pain 3-/4/10 right shoulder. pt can bend forward on a frequent ability Squatting: pt demo the ability to squat 3/3x, 10/10x following heart rate 114. 10/10x rapidly heart 113. pt states pain 3-4/10 right shoulder. pt can squat on a frequent ability Kneeling: pt demo the ability to kneel 3/3x, 10/10 heart rate 136 following-pt SOB - pt rested for 1min and needed water following. pt demo the ability kneel 5x rapidly then needed break heart rate 116 (pt SOB and stated legs muscles were burring). pt can kneel on occasional ability. pt demo deconditioned status due to limiting mobility and activity since her work injury Reaching out/up: pt demo the ability to reach out 3/3x and 10/10x heart rate 107. pt completed sitting. pt states right elbow initiated to 5/10 (aching). heat rate 78-77 following 10x rapidly. completed sitting with both UE at same time. pt can reach out on a frequent ability with bilateral UE. left UE reaching up completed 3/3, 10/10 heart rate 62 and completion of 10x rapidly heart rate 82 Pt can reach up with left on frequent ability -. right UE reaching up in limited ROM 3/3x pain 4/10 and 10/10x with heart rate at 91 ( pt refused 10x rapidly). pt states pain is 4/10 ( feels like she can not move her shoulder) just won't move. pt completed sitting down. pt can reach up on low occasional ability with in her plane of motion Walking: pt ambulated 10 min with good reciprocal and quick step pattern- Pt c/o leg feeling fatigued and voiced she had little activity over the last few year since her injury. pt can ambulate on a frequent ability. Standing: pt demo standing for 6 min with no apparent or expressed discomfort-pt did shift body weight and reported pain in right shoulder the same 4/10 pt can stand on frequent ability Sitting: pt demo the ability to sit for 50 min. after this time pt was demo discomfort by shifting her body weight- pt can sit on a frequent ability with given opportunity to shift her body weight Climbing Stairs: pt demo the ability to ascend and descend 10 steps with a reciprocal step pattern and use of one hand rail- pt demo good safe melina. Floor Lift: 15#. 20#. pt demo poor lift mechanics (with use of bilateral UE) pt lifted more with left than right ant ended up lifting mostly with left-. pt lifted 25# maximally with left UE only from floor to knee level. Knee Lift: 20# lift with poor mechanics pt guarded with use of right UE with bilateral box lifts - pushed weight to left UE with this lift - from knee to counter top or waist levels - Waist Lift: pt building superintendent 15# with use of body and left UE from waist level- with fair ability Shoulder Lift: pt demo the ability to lift 15# maximally waist to shoulder level with compensation melina. and fair ability. Overhead Lift: 10# with left UE only. no ability to lift 10# overhead with bilateral UE. no ability to lift wt overhead with right UE Carrying: pt demo the ability to carry 15# for 15 feet- use of weight against body and left UE with most carry. Comments: heart rate 100 after ambulation and push/pull ability with 40# for 4 feet-. pt demo with compensations of whole body due to limited UE use. Due to pts inconsistency with ROM-deputy sheriff civil division and her compensatory melina. with lifting would rec'd review of her physical therapy daily notes.
--- NOTE | 2021-08-24 12:29 | HP.OTFCE.D ---
FCE D/C Summary - Discharge MARY GRACE RODRIGUEZ was seen for a one time visit for an FCE on 08/22/21 and is discharged.
== END 2021-08-22 19:00 | disposition home or self-care (01) ==
LOC: OT 09:57
PROVIDERS: PCP Physician Assistant; Referring Provider Orthopaedic Surgery; Visit Provider Orthopaedic Surgery
DX: M75.81 Other shoulder lesions, right shoulder (principal); S43.401D Unspecified sprain of right shoulder joint, subsequent encounter; M75.01 Adhesive capsulitis of right shoulder; G56.01 Carpal tunnel syndrome, right upper limb; M75.21 Bicipital tendinitis, right shoulder; M77.11 Lateral epicondylitis, right elbow
CPT/HCPCS: 97750

== ENCOUNTER 2024-05-28 08:14 | Outpatient (CLI) | payer BC, SELFPAY ==
[2024-05-28 10:21] LABS: Hematocrit 47.4 % (37-47); Hemoglobin 15.5 g/dL (12.0-15.0); Mean Corp Hgb Conc 32.7 g/dL (32-36); Mean Corpuscular Hgb 31.2 pg (27.0-32.0); Mean Corpuscular Volume 95.4 fL (81-99); Mean Platelet Vol. 10.7 fl (6.2-12.0); Platelet Count 224 K/mm3 (150-450); RBC Distribution Width SD 45.7 fl (35.1-43.9); Red Blood Count 4.97 M/mm3 (4.2-5.4); White Blood Count 8.2 K/mm3 (4.4-11.0)
[2024-05-28 10:49] LABS: ALB/GLOB Ratio 0.9 RATIO (0.9-2.4); AST(SGOT) 31 U/L (15-37); Alanine Aminotransfer ALT/SGPT 77 U/L (13-56); Albumin, Serum 3.6 g/dL (3.2-5.0); Alkaline Phosphatase 78 U/L (45-117); Anion Gap 5 (5-15); BUN 17 mg/dL (7-18); BUN/Creat Ratio 17.2 RATIO (10-20); Chloride 109 mmol/L (98-107); Creatinine, Serum 0.99 mg/dL (0.55-1.02); EST Glomerular Filtration Rate 64 mL/min (>60); Est Glom Filt Rate - Afr Amer 78 mL/min (>60); Globulin 3.9 g/dL (2.2-4.2); Glucose 177 mg/dL (74-106); Potassium 4.3 mmol/L (3.5-5.1); Protein, Total 7.5 g/dL (6.4-8.2); Sodium Level 139 mmol/L (136-145)
[2024-05-28 15:58] LABS: Hemoglobin A1c 7.5 % (3.8-5.6)
== END 2024-05-28 23:59 | disposition home or self-care (01) ==
PROVIDERS: Referring Provider Internal Medicine Gastroenterology; Visit Provider Internal Medicine Gastroenterology
DX: Z01.818 Encounter for other preprocedural examination (principal)
CPT/HCPCS: 36415; 80053; 83036; 85027

== ENCOUNTER → 2025-04-29 | Outpatient (CLI) | payer BC, SELFPAY ==
[2025-04-29 11:13] LABS: AST(SGOT) 90 U/L (<=31); Alanine Aminotransfer ALT/SGPT 155 U/L (<=34); Albumin, Serum 4.1 g/dL (3.5-5.0); Alkaline Phosphatase 69 U/L (35-104); Anion Gap 11 (5-15); BUN 13 mg/dL (4-19); BUN/Creat Ratio 14.6 RATIO (10-20); Calcium,Total 9.9 mg/dL (7.6-11.0); Carbon Dioxide 22.2 mmol/L (21.0-32.0); Chloride 103 mmol/L (98-108); Ferritin 428 ng/mL (22-378); Globulin 2.7 g/dL (2.2-4.2); Glucose 280 mg/dL (70-99); Hepatitis C Antibody Nonreactive (Nonreactive); Potassium 4.2 mmol/L (3.3-5.1)
[2025-04-30 13:08] LABS: Anti-Smooth Muscle ABS 7 Units (0-19)
[2025-05-01 13:08] LABS: ANTINUCLEAR ANTIBODIES DIRECT Negative (Negative); Alpha Antitrypsin Serum 124 mg/dL (101-187)
== END | disposition home or self-care (01) ==
PROVIDERS: Referring Provider Internal Medicine Gastroenterology; Visit Provider Internal Medicine Gastroenterology
DX: K75.9 Inflammatory liver disease, unspecified (principal)
CPT/HCPCS: 36415; 80053; 82103; 82728; 83516; 86038; 86803